=== PATIENT | female | born 1970 | race Caucasian/White ===

== ENCOUNTER 2021-11-29 01:02 | Emergency (ER) | payer BC ==
[~2021-11-29] VITALS: Ht 172.7 cm; Wt 95.0 kg
--- NOTE | 2021-11-29 01:16 | PHYS DOC ---
Adult General Chief Complaint Chief Complaint: NAUSEA/VOMITING/DIARRHEA HPI HPI The patient is a 51-year-old female who is otherwise healthy. She presents for evaluation of copious nonbloody vomiting and copious nonbloody watery diarrhea, about 10 episodes each, with onset a few hours ago. No associated abdominal pain of any kind. No fevers, upper respiratory congestion/rhinorrhea, cough, sore throat, shortness of breath or chest pain of any kind, flank pain, midline back pain, dysuria, hematuria, polyuria or oliguria, recent unusual foods, unusual travel, sick contacts with similar symptoms, recent antibiotic use. Patient is alert and pleasantly and appropriately interactive and in no acute distress with completely appropriate vital signs upon initial evaluation here in the emergency department. Review of Systems Review of Systems A 12 point review of systems was completed and was negative except where noted in HPI above. Current Medications Current Medications Current Medications Medications (Trade) Dose Ordered Sig/Jayy Start Time Stop Time Status Last Admin Dose Admin Ondansetron HCl (Zofran) 4 mg 1X ONCE 11/29/21 01:45 11/29/21 01:46 DC 11/29/21 03:35 4 MG Sodium Chloride 1,000 ml @ 1,000 mls/hr 1X ONCE 11/29/21 01:45 11/29/21 02:44 DC 11/29/21 03:34 1,000 MLS/HR Allergies Allergies Allergies Coded Allergies Type Severity Reaction Last Updated Verified No Known Drug Allergies 11/29/21 No Physical Exam Physical Exam 51-year-old female appearing nontoxic and in no acute distress. Head is normocephalic and atraumatic. Neck is supple and nontender. Oropharynx is moist. Lungs are clear to auscultation at all stations. There is a normal S1 and S2 without rubs or gallops and capillary refill is appropriate, less than 2 seconds globally. Abdomen is soft, nontender and nondistended. Skin is warm and dry without cyanosis, clubbing or edema. Psychiatrically, the patient de monstrates appropriate mood and affect and is alert. Current Patient Data Vital Signs Vital Signs Date Time Temp Pulse Resp B/P (MAP) Pulse Ox O2 Delivery O2 Flow Rate FiO2 11/29/21 01:09 98.4 91 16 147/65 (92) 98 Room Air 98.4 Lab Values Laboratory Tests Test 11/29/21 01:18 White Blood Count 11.6 x10^3/uL (4.0-11.0) H Red Blood Count 4.57 x10^6/uL (3.50-5.40) Hemoglobin 14.2 g/dL (12.0-15.5) Hematocrit 40.5 % (36.0-47.0) Mean Corpuscular Volume 89 fL (79-100) Mean Corpuscular Hemoglobin 31 pg (25-35) Mean Corpuscular Hemoglobin Concent 35 g/dL (31-37) Red Cell Distribution Width 12.7 % (11.5-14.5) Platelet Count 235 x10^3/uL (140-400) Neutrophils (%) (Auto) 94 % (31-73) H Lymphocytes (%) (Auto) 2 % (24-48) L Monocytes (%) (Auto) 4 % (0-9) Eosinophils (%) (Auto) 0 % (0-3) Basophils (%) (Auto) 0 % (0-3) Neutrophils # (Auto) 10.8 x10^3/uL (1.8-7.7) H Lymphocytes # (Auto) 0.3 x10^3/uL (1.0-4.8) L Monocytes # (Auto) 0.4 x10^3/uL (0.0-1.1) Eosinophils # (Auto) 0.0 x10^3/uL (0.0-0.7) Basophils # (Auto) 0.0 x10^3/uL (0.0-0.2) Sodium Level 135 mmol/L (136-145) L Potassium Level 3.6 mmol/L (3.5-5.1) Chloride Level 100 mmol/L (98-107) Carbon Dioxide Level 28 mmol/L (21-32) Anion Gap 7 (6-14) Blood Urea Nitrogen 17 mg/dL (7-20) Creatinine 0.9 mg/dL (0.6-1.0) Estimated GFR (Cockcroft-Gault) 66.3 BUN/Creatinine Ratio 19 (6-20) Glucose Level 142 mg/dL (70-99) H Calcium Level 8.7 mg/dL (8.5-10.1) Total Bilirubin 0.6 mg/dL (0.2-1.0) Aspartate Amino Transferase (AST) 27 U/L (15-37) Alanine Aminotransferase (ALT) 37 U/L (14-59) Alkaline Phosphatase 81 U/L (46-116) Total Protein 7.8 g/dL (6.4-8.2) Albumin 3.5 g/dL (3.4-5.0) Albumin/Globulin Ratio 0.8 (1.0-1.7) L Lipase 84 U/L (73-393) Serum Test, Qualitative Negative (NEG) Laboratory Tests 11/29/21 01:18 Laboratory Tests 11/29/21 01:18 EKG EKG [] Radiology/Procedures Radiology/Procedures [] Course & Med Decision Making Course & Med Decision Making Well-appearing 51-year-old female with reassuring vital signs and a benign clinical examination (including a completely benign abdominal examination) presenting for vomiting and diarrhea for a few hours. Will place IV and give IV fluids and medication for nausea as noted and will check labs and urine and will then reevaluate. If work-up is reassuring and the patient feels better, likely home with antinausea medication to follow-up closely with primary care. Patient understands and agrees with this plan of care. 0400: Patient is feeling much, much better on reassessment. Tolerating oral fluids. Nausea is resolved. No abdominal pain. In view of reassuring work-up and resolution of symptoms will discharge home with Zofran and some Phenergan for nausea and instructions to rest, hydrate and follow-up very closely with primary care. Patient understands that if she feels worse instead of better or develops other new symptoms of concern that she will need to return to the emergency department immediately for reevaluation. All questions were answered Dragon Disclaimer Dragon Disclaimer This electronic medical record was generated, in whole or in part, using a voice recognition dictation system. Departure Departure Impression: Primary Impression: Acute vomiting Additional Impression: Acute diarrhea Disposition: HOME / SELF CARE / HOMELESS Condition: IMPROVED Referrals: UNKNOWN PCP NAME (PCP) Patient Instructions: Diarrhea, Nausea and Vomiting Additional Instructions: Follow-up very closely with your primary care doctor in the office in the next 2 to 4 days for a reevaluation of your symptoms and a discussion of next best steps in care. Drink plenty of fluids and get plenty of rest. Take a 4 mg Zofran tablet underneath your tongue every 8 hours as needed for nausea/vomiting. For nausea/vomiting persisting despite Zofran you may try a Phenergan pill every 6 hours as needed. Return to the emergency department right away for worsening symptoms of any kind or with any other new symptoms of concern. Scripts Promethazine Hcl (PROMETHAZINE HCL) 25 Mg Tablet 1 TAB PO PRN Q6HRS for nausea and vomiting, #12 TAB Prov: MAN ANN MD 11/29/21 Ondansetron (ONDANSETRON ODT) 4 Mg Tab.rapdis 1 TAB PO PRN Q6-8HRS PRN for NAUSEA, #10 TAB Prov: MAN ANN MD 11/29/21 Problem Qualifiers MAN ANN MD Nov 29, 2021 01:16
[2021-11-29 01:28] LABS: BASO % 0 % (0-3); EOS % 0 % (0-3); HEMATOCRIT 40.5 % (36.0-47.0); HEMOGLOBIN 14.2 g/dL (12.0-15.5); LYMPH # 0.3 x10^3/uL (1.0-4.8); LYMPH % 2 % (24-48); MEAN CORPUSCULAR HEMOGLOBIN 31 pg (25-35); MEAN CORPUSCULAR HGB CONC 35 g/dL (31-37); MEAN CORPUSCULAR VOLUME 89 fL (79-100); MONO # 0.4 x10^3/uL (0.0-1.1); MONO % 4 % (0-9); NEUT # 10.8 x10^3/uL (1.8-7.7); NEUT % 94 % (31-73); PLATELET COUNT 235 x10^3/uL (140-400); RED BLOOD COUNT 4.57 x10^6/uL (3.50-5.40); RED CELL DISTRIBUTION WIDTH 12.7 % (11.5-14.5); WHITE BLOOD COUNT 11.6 x10^3/uL (4.0-11.0)
[2021-11-29 01:34] LABS: PREG TEST PT QUAL NEGATIVE (NEG)
[2021-11-29 01:37] LABS: CALCIUM 8.7 mg/dL (8.5-10.1); CREATININE 0.9 mg/dL (0.6-1.0); GFR 66.3; POTASSIUM 3.6 mmol/L (3.5-5.1)
[2021-11-29 01:39] LABS: ALBUMIN 3.5 g/dL (3.4-5.0); ALBUMIN/GLOBULIN RATIO 0.8 (1.0-1.7); TOTAL BILIRUBIN 0.6 mg/dL (0.2-1.0); TOTAL PROTEIN 7.8 g/dL (6.4-8.2)
[2021-11-29] MEDS ORDERED: IV NORMAL SALINE 1000ML BAG 1,000 ML IV ONE (01:45)
[2021-11-29] MEDS ORDERED: ONDANSETRON PF 4 MG/2 ML VIAL. IVP ONE (01:45)
[2021-11-29] MEDS ORDERED: ONDA4TAB12 PO (04:27)
[2021-11-29] MEDS ORDERED: PROM25TA10 PO (04:27)
[2021-11-29 05:43] VITALS: BP 118/57
== END 2021-11-29 04:42 | disposition home or self-care (01) ==
LOC: ER 01:02
DX: R11.0 Nausea (principal); R11.10 Vomiting, unspecified; R19.7 Diarrhea, unspecified
CPT/HCPCS: 36415; 80053; 83690; 84703; 85025; 96361; 96374; 99285; J2405; J7030